=== PATIENT | male | born 1995 | race Caucasian/White ===

== ENCOUNTER → 2022-01-29 10:07 | Emergency (ER) | payer SELFPAY ==
--- NOTE | 2022-01-29 10:07 | NUR ---
PATIENT LEFT WITHOUT BEING SEEN BY DR. PATRICIA. NO FURTHER CARE PROVIDED FOR PATIENT. PT WAS BIBA FOR OD. PER MEDICS, PT WAS GIVEN 0.5MG NARCAN IV AND BECAME AWAKE AND ALERT. PT ELOPED FROM AMBULANCE PRIOR TO ENTERING THE HOSPITAL. PT NOT TRIAGED.
== END | disposition left against medical advice (07) ==
LOC: MED 10:07
DX: T65.91XA Toxic effect of unspecified substance, accidental (unintentional), initial encounter (principal); Z53.21 Procedure and treatment not carried out due to patient leaving prior to being seen by health care provider; Y92.89 Other specified places as the place of occurrence of the external cause